=== PATIENT | female | born 1990 | race Two or more races ===

== ENCOUNTER 2024-12-16 07:31 | Emergency (ER) | payer OTHER ==
[~2024-12-16] VITALS: Ht 167.6 cm; Wt 81.6 kg
[2024-12-16 08:01] VITALS: BP 119/79; O2SAT 99
[2024-12-16] MEDS ORDERED: KETOROLAC TROMETHAMINE 30 MG VIAL IM ONE (08:30)
[2024-12-16] MEDS ORDERED: ORPHENADRINE CITRATE 30 MG/ML AMPUL IM ONE (08:30)
[2024-12-16] MEDS ORDERED: DEXAMETHASONE SODIUM PHOSP/PF 10 MG/ML VIAL IJ ONE (08:30)
[2024-12-16] MEDS ORDERED: DEXAMETHASONE SODIUM PHOSPHATE 4 MG/ML VIAL ONE (08:40)
[2024-12-16] MEDS ORDERED: ORPHENADRINE CITRATE 30 MG/ML AMPUL ONE (08:40)
[2024-12-16] MEDS ORDERED: KETOROLAC TROMETHAMINE 30 MG VIAL ONE (08:40)
[2024-12-16] MEDS ORDERED: KETO10TA2 PO (10:05)
[2024-12-16] MEDS ORDERED: ASPERCREME1 EACH TOP (10:05)
[2024-12-16] MEDS ORDERED: ZANAFLEX4 MG PO (10:05)
== END 2024-12-16 10:32 | disposition home or self-care (01) ==
LOC: ER 07:31
DX: J06.9 Acute upper respiratory infection, unspecified (principal); Z20.822 Contact with and (suspected) exposure to COVID-19